=== PATIENT | female | born 1990 | race Two or more races ===

== ENCOUNTER 2019-01-14 17:15 | Emergency (ER) | payer MEDICAID ==
[~2019-01-14] VITALS: Ht 165.1 cm; Wt 77.1 kg
[~2019-01-14 17:15] MED LIST: PREN-129 OR
[2019-01-14 17:28] VITALS: BP 146/87
[2019-01-14 18:27] LABS: Urine Amorphous Crystal FEW /hpf (None Seen); Urine Bacteria MOD /hpf (None Seen); Urine Blood Negative /uL (Negative); Urine Mucus FEW (None Seen); Urine Specific Gravity 1.021 (1.001-1.035); Urine WBC 126 /hpf (0 - 5)
[2019-01-14 19:18] LABS: Basophils # (auto) 0 uL; Basophils % (auto) 0.3 % (0.0-2.0); Eosinophils # (auto) 0 uL; Eosinophils % (auto) 0.5 % (0.0-7.0); Hematocrit 34.5 % (36.0-46.0); Lymphocytes # (auto) 1.2 uL; Lymphocytes % (auto) 11.7 % (10.0-50.0); Mean Corpuscular Hemoglobin 30.7 pg (28.0-32.0); Mean Corpuscular Hgb Conc. 34.9 g/dL (32.0-36.0); Monocytes # (auto) 0.5 uL; Monocytes % (auto) 4.7 % (0.0-12.0); Neutrophils # (auto) 8.2 uL; Neutrophils % (auto) 82.8 % (37.0-80.0); Platelet Count (auto) 280 10^3/uL (140-450); Red Blood Cells 3.93 10^6/uL (4.0-5.20); Red Cell Distribution Width 12.9 % (11.8-14.3); White Blood Cell 9.9 10^3/uL (4.4-10.8)
[2019-01-14 19:19] LABS: BUN/Creatinine Ratio 17.6; Calcium 8.6 mg/dL (8.5-10.1); Potassium 3.3 mmol/L (3.5-5.1)
[2019-01-14 19:22] LABS: Bilirubin, Total 0.2 mg/dL (0.2-1.0); Total Protein 6.8 g/dL (6.4-8.2)
[2019-01-14] MEDS ORDERED: SODIUM CHLORIDE 0.9% 1,000 ML IV ONE (20:15)
== END 2019-01-14 20:16 | disposition left against medical advice (07) ==
LOC: ER 17:15
DX: O26.892 Other specified pregnancy related conditions, second trimester (principal); R10.9 Unspecified abdominal pain; Z3A.20 20 weeks gestation of pregnancy
CPT/HCPCS: 36415; 76805; 80053; 81001; 84702; 85025

== ENCOUNTER 2021-03-24 00:49 | Inpatient (IN) | payer MEDICAID ==
[~2021-03-24] VITALS: Ht 30.5 cm; Wt 0.5 kg
[2021-03-24] VITALS (13 sets, daily range): BP systolic 103–155; BP diastolic 61–99
[2021-03-24] MEDS ORDERED: LACT. RINGERS/OXYTOCIN 20UNITS 1,000 ML IV ONE (00:57)
[2021-03-24] MEDS ORDERED: METHYLERGONOVINE MALEATE 0.2 MG/ML AMP IM ONE (00:57)
[2021-03-24] MEDS ORDERED: miSOPROStol 100 mcg TAB ONE (00:57)
[2021-03-24] MEDS ORDERED: CARBOPROST TROMETHAMINE 250 MCG/1ML VIAL IM ONE (01:06)
[2021-03-24] MEDS ORDERED: MAGNESIUM SULFATE 100 ML IV ONE ×2 (01:07→01:15)
[2021-03-24] MEDS ORDERED: MAGNESIUM SULFATE 40MG/ML 1,000 ML IV ONE (01:07)
[2021-03-24] MEDS ORDERED: hydrALAZINE HCL 20 MG/ML VL ONE (01:07)
[2021-03-24] MEDS ORDERED: PENICILLIN G POT 5MIL/D5 50ML 50 ML IV ONE ×3 (01:09→01:30)
[2021-03-24] MEDS ORDERED: PHISODERM TOP SOLN 240ML BTL TOP PRN (01:15)
[2021-03-24] MEDS ORDERED: DERMOPLAST 60ML BOTTLE TOP PRN (01:15)
[2021-03-24] MEDS ORDERED: WITCH HAZEL-GLYCERIN PAD TOP PRN (01:15)
[2021-03-24] MEDS ORDERED: LIDOCAINE 2%HCL (LOCAL ANESTH.) INJ 20ML MDV IJ PRN (01:15)
[2021-03-24] MEDS ORDERED: LACTATED RINGER'S 1,000 ML IV SCH ×2 (01:15→15:00)
[2021-03-24] MEDS ORDERED: MAGNESIUM SULFATE 40MG/ML 1,000 ML IV SCH ×2 (01:15→15:15)
[2021-03-24] MEDS ORDERED: miSOPROStol 100 mcg TAB SL PRN (01:30)
[2021-03-24] MEDS ORDERED: miSOPROStol 100 mcg TAB PR PRN (01:30)
[2021-03-24] MEDS ORDERED: LACT. RINGERS/OXYTOCIN 20UNITS 500 ML IV ONE ×2 (01:32→01:34)
[2021-03-24 02:00] LABS: Urine Bacteria NONE SEEN /hpf (None Seen); Urine Blood Negative /uL (Negative); Urine Specific Gravity 1.023 (1.001-1.035); Urine WBC 28 /hpf (0 - 5)
[2021-03-24 02:11] LABS: Amphetamine Screen, Urine POSITIVE (NEGATIVE); Barbiturate Scree,Urine NEGATIVE (NEGATIVE); Benzodiazephine Screen, Urine NEGATIVE (NEGATIVE); Cannabinoid Screen, Urine NEGATIVE (NEGATIVE); Cocaine Screen, Urine NEGATIVE (NEGATIVE); Opiate Scree,Urine POSITIVE (NEGATIVE); Phencyclidine Screen, Urine NEGATIVE (NEGATIVE)
[2021-03-24 02:52] LABS: Eosinophils # (auto) 0 10 ^3/uL (0-0.8); Eosinophils % (auto) 0.3 % (0.0-7.0)
[2021-03-24 03:01] LABS: Basophils # (auto) 0 10 ^3/uL (0-0.2); Basophils % (auto) 0.3 % (0.0-2.0); Hematocrit 37.1 % (36.0-46.0); Lymphocytes # (auto) 2.6 10 ^3/uL (0.4-5.4); Lymphocytes % (auto) 19.8 % (10.0-50.0); Mean Corpuscular Hemoglobin 25.8 pg (28.0-32.0); Mean Corpuscular Hgb Conc. 32.3 g/dL (32.0-36.0); Mean Corpuscular Volume 79.8 fL (80.0-100.0); Monocytes # (auto) 0.7 10 ^3/uL (0-1.3); Monocytes % (auto) 5.4 % (0.0-12.0); Neutrophils # (auto) 9.8 10 ^3/uL (1.6-8.6); Neutrophils % (auto) 74.2 % (37.0-80.0); Nucleated Red Blood Cells % 0.1 %; Red Blood Cells 4.66 10^6/uL (4.0-5.20); Red Cell Distribution Width 13.9 % (11.8-14.3); White Blood Cell 13.2 10^3/uL (4.4-10.8)
[2021-03-24 03:08] LABS: Albumin 2.2 g/dL (3.4-5.0); Calcium 8.7 mg/dL (8.5-10.1); Potassium 3.5 mmol/L (3.5-5.1)
[2021-03-24 03:10] LABS: BUN/Creatinine Ratio 17.9
[2021-03-24 03:13] LABS: Bilirubin, Total 0.4 mg/dL (0.2-1.0); Total Protein 6.8 g/dL (6.4-8.2)
[2021-03-24 03:27] LABS: INR 0.89 (0.9-1.15); Partial Thromboplastin Time 25.9 sec (23.6-33.0)
[2021-03-24] MEDS ORDERED: ACETAMINOPHEN 325 MG TAB PO PRN (04:45)
[2021-03-24] MEDS: IBUPROFEN 800 MG TAB PO SCH ×3 (05:20→17:41)
[2021-03-24] MEDS: PENICILLIN G POTASSIUM 2,500,000 UNITS in D5W 5% 50 ML IV SCH ×2 (05:30→11:17)
[2021-03-24] MEDS ORDERED: LABETALOL HCL 200 MG TAB PO SCH ×2 (06:30→20:00)
[2021-03-24] MEDS: hydrALAZINE HCL 20 MG/ML VL IV PRN ×2 (06:33→06:34)
[2021-03-24] MEDS ORDERED: LABETALOL HCL 200 MG TAB PO ONE (07:45)
[2021-03-24] MEDS ORDERED: ONDANSETRON HCL 4 MG/2 ML VIAL IV PRN (09:45)
[2021-03-24] MEDS ORDERED: LABETALOL HCL 5 MG/ML 4ML SYRINGE IV PRN (09:45)
[2021-03-24] MEDS ORDERED: LORazepam 0.5 MG TAB PO PRN (09:45)
[2021-03-24] MEDS ORDERED: SODIUM CHLORIDE 0.9% 1,000 ML IV SCH (10:00)
[2021-03-24] MEDS ORDERED: METHADONE HCL 10 MG TAB PO SCH ×2 (10:15→10:30)
[2021-03-24] MEDS: METHADONE HCL 10 MG TAB PO SCH ×2 (10:25→18:33)
[2021-03-24] MEDS: METHOCARBAMOL 500 MG TAB PO SCH ×3 (12:00→22:00)
[2021-03-24] MEDS: NITROFURANTOIN 100 mg CAP PO SCH (22:23)
[2021-03-24] MEDS: traZODone HCL 50 MG TAB PO SCH (22:23)
[2021-03-24] MEDS ORDERED: NITR-87 PO (22:52)
[2021-03-25] VITALS (7 sets, daily range): BP systolic 122–146; BP diastolic 67–89
[2021-03-25] MEDS: METHADONE HCL 10 MG TAB PO SCH ×3 (02:26→18:35)
[2021-03-25] MEDS: IBUPROFEN 800 MG TAB PO SCH ×5 (06:00→23:50)
[2021-03-25] MEDS: METHOCARBAMOL 500 MG TAB PO SCH ×4 (06:00→21:57)
[2021-03-25 07:06] LABS: RPR Non Reactive (Non Reactive)
[2021-03-25] MEDS: NITROFURANTOIN 100 mg CAP PO SCH ×2 (10:16→21:57)
[2021-03-25] MEDS: traZODone HCL 50 MG TAB PO SCH (21:57)
[2021-03-26 02:05] LABS: Rubella Antibodies, IgG 9.72 index (Immune >0.99)
[2021-03-26] MEDS: METHADONE HCL 10 MG TAB PO SCH ×2 (02:43→10:38)
[2021-03-26 02:44] VITALS: BP 132/72
[2021-03-26] MEDS: METHOCARBAMOL 500 MG TAB PO SCH (05:37)
[2021-03-26] MEDS: IBUPROFEN 800 MG TAB PO SCH (05:37)
[2021-03-26 06:29] VITALS: BP 115/75
[2021-03-26] MEDS: NITROFURANTOIN 100 mg CAP PO SCH (10:38)
[2021-03-26 11:35] VITALS: BP 128/93
== END 2021-03-26 12:52 | disposition home or self-care (01) | DRG 560 ==
LOC: LDRP 00:49 → OBSVTOIN 00:49 → LDRP 04:56
PROVIDERS: ADMIT Obstetrics & Gynecology; ATTEND Obstetrics & Gynecology
PROC: 10E0XZZ Delivery of Products of Conception, External Approach (ICD-10-PCS; principal; 2021-03-24)
PROC: 0UQGXZZ Repair Vagina, External Approach (ICD-10-PCS; 2021-03-24)
DX: O13.4 Gestational [pregnancy-induced] hypertension without significant proteinuria, complicating childbirth (principal); Z37.0 Single live birth; O75.3 Other infection during labor; O99.324 Drug use complicating childbirth; F11.23 Opioid dependence with withdrawal; Z3A.40 40 weeks gestation of pregnancy; Z20.822 Contact with and (suspected) exposure to COVID-19; F15.90 Other stimulant use, unspecified, uncomplicated; O99.334 Smoking (tobacco) complicating childbirth; F17.200 Nicotine dependence, unspecified, uncomplicated; O71.4 Obstetric high vaginal laceration alone; O76 Abnormality in fetal heart rate and rhythm complicating labor and delivery; N39.0 Urinary tract infection, site not specified
CPT/HCPCS: 36415; 59025; 59409; 80053; 80307; 81001; 83735; 84550; 85025; 85384; 85610; 85730; 86592; 86703; 86762; 86850; 86900; 86901; 87340; 87426; 94760; 96360; 96361; 96365; 96366; 96374; 96375; G0378; J2540; J2590; J7060

== ENCOUNTER 2021-04-14 23:06 | Emergency (ER) | payer MEDICAID, OTHER ==
[~2021-04-14] VITALS: Ht 170.2 cm; Wt 77.1 kg
[~2021-04-14 23:06] MED LIST changes: +NITR-87 PO
[2021-04-14 23:27] VITALS: BP 154/102
== END 2021-04-14 23:31 | disposition left against medical advice (07) ==
LOC: ER 23:06 → EDUNIT# 23:06 → ER 23:31
DX: F11.10 Opioid abuse, uncomplicated (principal); Z53.21 Procedure and treatment not carried out due to patient leaving prior to being seen by health care provider

== ENCOUNTER 2024-02-12 04:42 | Inpatient (IN) | payer MEDICAID, OTHER ==
[2024-02-12] VITALS (8 sets, daily range): BP systolic 115–153; BP diastolic 72–95; PULSE 55–96; RESP 16–28; TEMP 97.8–98.2; O2SAT 95–100
[~2024-02-12] VITALS: Ht 165.1 cm; Wt 90.0 kg
[2024-02-12 05:27] LABS: Basophils # (auto) 0 10 ^3/uL (0-0.2); Basophils % (auto) 0.4 % (0.0-2.0); Eosinophils # (auto) 0 10 ^3/uL (0-0.8); Eosinophils % (auto) 0.5 % (0.0-7.0); Hematocrit 31.6 % (36.0-46.0); Hemoglobin 10.8 g/dL (12.2-16.2); Lymphocytes # (auto) 1.5 10 ^3/uL (0.4-5.4); Lymphocytes % (auto) 14.8 % (10.0-50.0); Mean Corpuscular Hemoglobin 28.3 pg (28.0-32.0); Mean Corpuscular Hgb Conc. 34.1 g/dL (32.0-36.0); Monocytes # (auto) 0.6 10 ^3/uL (0-1.3); Monocytes % (auto) 6.5 % (0.0-12.0); Neutrophils # (auto) 7.8 10 ^3/uL (1.6-8.6); Neutrophils % (auto) 77.8 % (37.0-80.0); Platelet Count (auto) 188 10^3/uL (140-450); Red Cell Distribution Width 12.8 % (11.8-14.3)
[2024-02-12 05:42] LABS: Alanine Aminotransferase 11 U/L (7-40); Albumin 3.2 g/dL (3.2-4.8); Alkaline Phosphatase 190 U/L (46-116); Anion Gap 6 (5-15); Aspartate Aminotransferase 18 U/L (13-40); BUN/Creatinine Ratio 23.1 (10.0-20.0); Bilirubin, Total 0.3 mg/dL (0.2-1.0); Blood Urea Nitrogen 12 mg/dL (9-23); Calcium 8.6 mg/dL (8.7-10.4); Carbon Dioxide 24 mmol/L (20-30); Chloride 107 mmol/L (98-107); Glucose 96 mg/dL (74-106); Potassium 3.4 mmol/L (3.5-5.1); Sodium 137 mmol/L (136-145); Total Protein 5.6 g/dL (5.7-8.2)
[2024-02-12] MEDS: SUCCINYLCHOLINE CHLORIDE 20 MG/ML 10ML VIAL IV ONE (07:14)
[2024-02-12] MEDS: CARBOPROST TROMETHAMINE 250 MCG/1ML VIAL IM ONE (07:24)
[2024-02-12] MEDS: DIPHENOXYLATE W/ATROPINE 2.5 MG TAB PO SCH (07:25)
[2024-02-12] MEDS ORDERED: ONDANSETRON HCL 4 MG/2 ML VIAL IV PRN (07:30)
[2024-02-12] MEDS ORDERED: CARBOPROST TROMETHAMINE 250 MCG/1ML VIAL IM PRN (07:30)
[2024-02-12] MEDS ORDERED: MEPERIDINE HCL (25 MG/ML) 1ML VIAL ONE (07:30)
[2024-02-12] MEDS ORDERED: fentaNYL CITRATE 100 MCG/2 ML VL ONE (07:30)
[2024-02-12] MEDS ORDERED: MIDAZOLAM HCL 2MG/2ML 2ml VIAL (1mg/ml) ONE (07:31)
[2024-02-12] MEDS ORDERED: LIDOCAINE 1% (LOCAL ANESTH.) PF 5ml SDV ONE (07:31)
[2024-02-12] MEDS ORDERED: oxyTOCIN 10 UNIT/ML 10ML VIAL ONE (07:31)
[2024-02-12] MEDS ORDERED: PROPOFOL 10 MG/ML 20 ML IV ONE (07:31)
[2024-02-12] MEDS ORDERED: ONDANSETRON HCL 4 MG/2 ML VIAL ONE (07:31)
[2024-02-12] MEDS ORDERED: ROCURONIUM 10MG/ML 10ML VIAL IV ONE (07:31)
[2024-02-12] MEDS ORDERED: LIDOCAINE 2% TOPICAL JELLY 5 ML URJT TOP ONE (07:31)
[2024-02-12] MEDS ORDERED: SODIUM CHLORIDE LOCK 10 ML ONE (07:31)
[2024-02-12] MEDS: GUM (CHEWING) 1 GUM CHEW CHEW ONE (07:45)
[2024-02-12] MEDS ORDERED: ceFAZolin 1GM/50ML 50 ML IV SCH (07:45)
[2024-02-12] MEDS: LACT. RINGERS/OXYTOCIN 20UNITS 1,000 ML IV ONE (07:45)
[2024-02-12] MEDS ORDERED: SUGAMMADEX 200mg/2ml Vial (100MG/ML) IV ONE (07:54)
[2024-02-12] MEDS ORDERED: KETOROLAC TROMETH 30 MG/ML 1ML VIAL ONE (07:54)
[2024-02-12] MEDS: ceFAZolin 1GM/50ML 50 ML IV ONE ×2 (08:08→08:10)
[2024-02-12] MEDS: KETOROLAC TROMETH 30 MG/ML 1ML VIAL IV ONE (08:15)
[2024-02-12] MEDS ORDERED: MORPHINE SULFATE INJ 2 MG/ml SYRG IV PRN (08:15)
[2024-02-12] MEDS ORDERED: fentaNYL CITRATE 100 MCG/2 ML VL IV PRN (08:15)
[2024-02-12] MEDS ORDERED: HYDROmorphone HCL 2 MG/ML VL/or syr IV PRN ×2 (08:15)
[2024-02-12 08:51] LABS: Urine Bacteria FEW /hpf (None Seen); Urine Blood Negative /uL (Negative); Urine Clarity Turbid (Clear); Urine Color Colorless (Yellow); Urine Mucus FEW (None Seen); Urine Protein, UAD TRACE (Negative); Urine Specific Gravity 1.018 (1.001-1.035); Urine Urobilinogen Normal (Negative); Urine WBC 2 /hpf (0 - 5); Urine pH 6.5 (5.0-9.0)
[2024-02-12 08:54] LABS: Protein, Urine 33.4 mg/dL (0.0-11.9)
[2024-02-12 08:56] LABS: Amphetamine Screen, Urine Pos (NEGATIVE); Barbiturate Scree,Urine Neg (NEGATIVE); Benzodiazephine Screen, Urine Neg (NEGATIVE); Cocaine Screen, Urine Neg (NEGATIVE); Creatinine, Urine 54.46 mg/dL (30.0-125.0); Urine Protein/Creatinine Ratio 0.61
[2024-02-12 08:57] LABS: Cannabinoid Screen, Urine Neg (NEGATIVE); Opiate Scree,Urine Neg (NEGATIVE); Phencyclidine Screen, Urine Neg (NEGATIVE)
[2024-02-12] MEDS: MORPHINE SULFATE 4 MG/ML SYR/VIAL IV PRN (08:57)
[2024-02-12 09:10] LABS: INR 0.89 (0.9-1.15); Partial Thromboplastin Time 27.7 SEC (24.5-34.5); Prothrombin Time 9.5 sec (9.3-11.8)
[2024-02-12 09:29] LABS: Alanine Aminotransferase 14 U/L (7-40); Albumin 3.2 g/dL (3.2-4.8); Alkaline Phosphatase 188 U/L (46-116); Anion Gap 6 (5-15); Aspartate Aminotransferase 18 U/L (13-40); BUN/Creatinine Ratio 24.5 (10.0-20.0); Bilirubin, Total 0.3 mg/dL (0.2-1.0); Blood Urea Nitrogen 12 mg/dL (9-23); Calcium 8.7 mg/dL (8.7-10.4); Carbon Dioxide 24 mmol/L (20-30); Chloride 107 mmol/L (98-107); Glucose 95 mg/dL (74-106); Potassium 3.4 mmol/L (3.5-5.1); Sodium 137 mmol/L (136-145); Total Protein 5.6 g/dL (5.7-8.2)
[2024-02-12] MEDS ORDERED: LACTATED RINGER'S 1,000 ML IV SCH (09:30)
[2024-02-12 10:00] LABS: Uric Acid 6.3 mg/dL (3.1-7.8)
[2024-02-12] MEDS: NIFEdipine ER 30 MG TAB PO ONE (10:46)
[2024-02-12] MEDS: LACTATED RINGER'S 1,000 ML IV SCH (12:22)
[2024-02-12] MEDS: ACETAMINOPHEN IV 1000 MG/100ML (10MG/ML) IV PRN (12:55)
[2024-02-12] MEDS: ceFAZolin 1GM/50ML 50 ML IV SCH (16:01)
[2024-02-12 20:47] LABS: Basophils # (auto) 0 10 ^3/uL (0-0.2); Basophils % (auto) 0.2 % (0.0-2.0); Eosinophils # (auto) 0 10 ^3/uL (0-0.8); Eosinophils % (auto) 0.2 % (0.0-7.0); Hemoglobin 9.7 g/dL (12.2-16.2); Lymphocytes # (auto) 1.4 10 ^3/uL (0.4-5.4); Lymphocytes % (auto) 12.6 % (10.0-50.0); Mean Corpuscular Hemoglobin 28.8 pg (28.0-32.0); Mean Corpuscular Hgb Conc. 34.8 g/dL (32.0-36.0); Mean Corpuscular Volume 82.6 fL (80.0-100.0); Monocytes # (auto) 0.7 10 ^3/uL (0-1.3); Monocytes % (auto) 6.2 % (0.0-12.0); Neutrophils # (auto) 8.8 10 ^3/uL (1.6-8.6); Neutrophils % (auto) 80.8 % (37.0-80.0); Platelet Count (auto) 199 10^3/uL (140-450); Red Blood Cells 3.39 10^6/uL (4.0-5.20); Red Cell Distribution Width 12.5 % (11.8-14.3); White Blood Cell 10.9 10^3/uL (4.4-10.8)
[2024-02-13 03:02] VITALS: BP 139/87; PULSE 84; RESP 18; TEMP 99.3; O2SAT 95
[2024-02-13] MEDS: METOCLOPRAMIDE HCL 5MG/ml INJ 2ml VIAL IV ONE (06:40)
[2024-02-13 06:49] LABS: Basophils # (auto) 0 10 ^3/uL (0-0.2); Basophils % (auto) 0.2 % (0.0-2.0); Eosinophils # (auto) 0 10 ^3/uL (0-0.8); Eosinophils % (auto) 0.1 % (0.0-7.0); Hematocrit 28.7 % (36.0-46.0); Hemoglobin 9.7 g/dL (12.2-16.2); Lymphocytes # (auto) 1.3 10 ^3/uL (0.4-5.4); Lymphocytes % (auto) 14.2 % (10.0-50.0); Mean Corpuscular Hemoglobin 28.5 pg (28.0-32.0); Mean Corpuscular Volume 83.9 fL (80.0-100.0); Monocytes # (auto) 0.5 10 ^3/uL (0-1.3); Monocytes % (auto) 5.8 % (0.0-12.0); Neutrophils # (auto) 7.1 10 ^3/uL (1.6-8.6); Neutrophils % (auto) 79.7 % (37.0-80.0); Platelet Count (auto) 191 10^3/uL (140-450); Red Blood Cells 3.41 10^6/uL (4.0-5.20); Red Cell Distribution Width 12.8 % (11.8-14.3); White Blood Cell 8.9 10^3/uL (4.4-10.8)
[2024-02-13 07:07] LABS: Rubella Antibodies, IgG 8.64 index (Immune >0.99)
[2024-02-13 07:20] VITALS: BP 134/90; PULSE 80; RESP 16; TEMP 98.2; O2SAT 97
[2024-02-13 08:06] LABS: RPR Non Reactive (Non Reactive)
[2024-02-13] MEDS ORDERED: IBUP-1456 PO (09:43)
[2024-02-13] MEDS ORDERED: DOCU-94 PO (09:43)
[2024-02-13] MEDS ORDERED: HYDR-4072 PO (09:43)
[2024-02-13] MEDS: ONDANSETRON HCL 4 MG/2 ML VIAL IV PRN (10:02)
[2024-02-13 11:30] VITALS: BP 151/105; PULSE 85; RESP 16; TEMP 98.2; O2SAT 99
[2024-02-13] MEDS ORDERED: HYDROcodone-ACET 5/325MG TAB PO PRN (11:30)
[2024-02-13] MEDS: SIMETHICONE 80 MG CHEWABLE TABLET PO SCH (11:55)
[2024-02-13] MEDS: LABETALOL HCL 200 MG TAB PO SCH (11:56)
[2024-02-13 14:59] VITALS: BP 122/76; PULSE 88; RESP 16; TEMP 98.8; O2SAT 96
[2024-02-13] MEDS: HYDROcodone-ACET 5/325MG TAB PO PRN (16:00)
[2024-02-13 19:00] VITALS: BP 105/63; PULSE 95; RESP 14; TEMP 97.6; O2SAT 96
[2024-02-13] MEDS: IBUPROFEN 800 MG TAB PO PRN (19:39)
[2024-02-13] MEDS: DOCUSATE SOD 100 MG CAP PO SCH (22:09)
[2024-02-13 23:01] VITALS: BP 106/63; PULSE 78; RESP 18; TEMP 97.7; O2SAT 96
[2024-02-14 02:59] VITALS: BP 128/71; PULSE 70; RESP 16; TEMP 97.8; O2SAT 95
[2024-02-14 07:00] VITALS: BP 126/74; PULSE 85; RESP 14; TEMP 98; O2SAT 97
[2024-02-14] MEDS ORDERED: NIFE1TAB30 PO (07:47)
[2024-02-14] MEDS ORDERED: DOCUSATE CALCIUM 240 MG CAP PO SCH (10:00)
[2024-02-14 11:00] VITALS: BP 120/76; PULSE 80; RESP 16; TEMP 98.2; O2SAT 98
[2024-02-14] MEDS ORDERED: QUEtiapine FUMARATE 25 MG TAB PO SCH (22:00)
== END 2024-02-14 12:11 | disposition home or self-care (01) | DRG 540 ==
LOC: ER 04:42 → EDBD 04:42 → EDUNIT# 04:42 → OBSVTOIN 06:45 → LDRP 06:45
PROVIDERS: ADMIT Obstetrics & Gynecology; ATTEND Obstetrics & Gynecology
PROC: 10D00Z1 Extraction of Products of Conception, Low, Open Approach (ICD-10-PCS; principal; 2024-02-12 07:14)
DX: O32.1XX0 Maternal care for breech presentation, not applicable or unspecified (principal); O99.324 Drug use complicating childbirth; O99.334 Smoking (tobacco) complicating childbirth; Z37.0 Single live birth; F17.210 Nicotine dependence, cigarettes, uncomplicated; O99.344 Other mental disorders complicating childbirth; F20.9 Schizophrenia, unspecified; F31.9 Bipolar disorder, unspecified; O16.4 Unspecified maternal hypertension, complicating childbirth; Z3A.38 38 weeks gestation of pregnancy; F15.90 Other stimulant use, unspecified, uncomplicated
CPT/HCPCS: 36415; 59025; 76805; 80053; 80307; 81001; 81002; 82570; 84156; 84550; 84702; 85025; 85610; 85730; 86592; 86703; 86762; 86803; 86850; 86900; 86901; 87340; 94760; 94762; 96360; 96361; 96365; 99291; G0378; J0131; J0330; J1885; J2250; J2405; J2590; J2704